=== PATIENT | male | born 1940 | race Caucasian/White ===

== ENCOUNTER 2022-11-23 08:42 | Outpatient (REF) | payer MEDICARE, MEDICAID, SELFPAY ==
[2022-11-23 11:09] LABS: MANUAL DIFF FLAG NO
[2022-11-23 11:37] LABS: Basophils Absolute Auto 0.1 X10*3/uL (0.0-0.2); Basophils Percent Auto 0.9 % (0-2); Eosinophils Absolute Auto 0.1 X10*3/uL (0.0-0.4); Eosinophils Percent Auto 1.4 % (0-4); Hematocrit 37.9 % (42.0-52.0); Hemoglobin 12.3 g/dl (14.0-18.0); Imm Gran Abs Auto 0.06 X10*3/uL (0.00-0.03); Imm Gran Pct Auto 0.9 % (0.0-0.4); Lymphocytes Absolute Auto 2.2 X10*3/uL (1.2-4.9); Lymphocytes Percent Auto 33.2 % (20-40); Mean Corpuscular HGB Conc 32.5 g/dl (31.0-36.0); Mean Corpuscular Hemoglobin 29.9 pg (27.0-33.0); Mean Corpuscular Volume 92.2 fL (80.0-98.0); Mean Platelet Volume 10.6 fL (9.4-12.4); Monocytes Absolute Auto 0.7 X10*3/uL (0.1-1.2); Monocytes Percent Auto 10.3 % (2-11); Neutrophils Absolute Auto 3.5 x10*3/uL (2.0-8.3); Neutrophils Percent Auto 53.3 % (45-73); Platelet Count 237 X10*3/uL (160-400); Red Blood Count 4.11 X10*6/uL (4.60-5.80); Red Cell Distribution Width 13.2 % (11.0-16.0); White Blood Count 6.5 X10*3/uL (4.8-10.8)
[2022-11-23 12:02] LABS: Alanine Aminotransferase 15 U/L (0-40); Albumin Level 4.2 g/dL (3.5-5.0); Alkaline Phosphatase 97 U/L (39-117); Anion Gap 10 (12-20); Aspartate Amino Transferase 20 U/L (5-37); Bilirubin Direct 0.2 mg/dL (0.0-0.5); Bilirubin Total 0.6 mg/dL (0.0-1.0); Blood Urea Nitrogen 22 mg/dL (9-16); Calcium 9.6 mg/dL (8.4-10.2); Carbon Dioxide 28 mmol/L (22-29); Chloride 104 mmol/L (96-108); Cholesterol 212 mg/dL; Estimated Glomerular Filt Rate 55; Glucose Random 149 mg/dL (60-115); HDL Cholesterol 55 mg/dL; LDL Cholesterol Calculated 139 mg/dl; Potassium 4.3 mmol/L (3.3-5.1); Sodium 138 mmol/L (135-145); Total Protein 7.9 g/dL (6.5-8.0); Triglycerides 93 mg/dL
[2022-11-23 12:11] LABS: ~HepC Num1 0.14 S/CO (0.00-0.79); ~Hepatitis C Antibody Nonreactive (Nonreactive)
[2022-11-23 12:13] LABS: Creatinine Urine 34.94 mg/dL; Microalbum/Creatinine Ratio Ur 228.9 ug/mg cr
[2022-11-23 12:14] LABS: HIV AB/AG Nonreactive (Nonreactive); HIV Num 1 0.05 S/CO (0.00-0.99)
[2022-11-25 10:59] LABS: Free Prostate Spec Ag 0.1 ng/mL; Percent Free Prostate Spec Ag 9 % (calc) (>25); Prostate Specific Ag Total 1.1 ng/mL (< OR = 4.0)
== END 2022-11-23 08:43 | disposition home or self-care (01) ==
LOC: HO.HHCL 08:42
PROVIDERS: Visit Provider Family Medicine
DX: Z11.4 Encounter for screening for human immunodeficiency virus [HIV] (principal); E11.9 Type 2 diabetes mellitus without complications; C61 Malignant neoplasm of prostate
CPT/HCPCS: 36415; 80048; 80061; 80076; 82043; 84154; 85025; 86803; 87389

== ENCOUNTER 2024-02-01 08:37 | Outpatient (REF) | payer OTHER, SELFPAY ==
[2024-02-01 11:05] LABS: MANUAL DIFF FLAG NO
[2024-02-01 11:19] LABS: Basophils Absolute Auto 0.1 X10*3/uL (0.0-0.2); Basophils Percent Auto 0.9 % (0-2); Eosinophils Absolute Auto 0.1 X10*3/uL (0.0-0.4); Hematocrit 36.4 % (42.0-52.0); Hemoglobin 11.9 g/dl (14.0-18.0); Imm Gran Abs Auto 0.03 X10*3/uL (0.00-0.03); Imm Gran Pct Auto 0.5 % (0.0-0.4); Lymphocytes Absolute Auto 1.8 X10*3/uL (1.2-4.9); Lymphocytes Percent Auto 30.6 % (20-40); Mean Corpuscular HGB Conc 32.7 g/dl (31.0-36.0); Mean Corpuscular Hemoglobin 29.5 pg (27.0-33.0); Mean Corpuscular Volume 90.1 fL (80.0-98.0); Mean Platelet Volume 10.8 fL (9.4-12.4); Monocytes Absolute Auto 0.7 X10*3/uL (0.1-1.2); Monocytes Percent Auto 11.5 % (2-11); Neutrophils Absolute Auto 3.3 x10*3/uL (2.0-8.3); Neutrophils Percent Auto 55.5 % (45-73); Platelet Count 237 X10*3/uL (160-400); Red Blood Count 4.04 X10*6/uL (4.60-5.80); Red Cell Distribution Width 13.8 % (11.0-16.0); White Blood Count 5.9 X10*3/uL (4.8-10.8)
[2024-02-01 11:22] LABS: Estimated Average Glucose 114 mg/dL; Hemoglobin A1C 113.5233 umol/L; Hemoglobin A1c % 5.6 % (<6.0); Total Hemoglobin (HGBA1C) 2991.5612 umol/L
[2024-02-01 11:30] LABS: Alanine Aminotransferase 72 U/L (0-40); Albumin Level 4.1 g/dL (3.5-5.0); Alkaline Phosphatase 112 U/L (39-117); Anion Gap 12 (12-20); Aspartate Amino Transferase 54 U/L (5-37); Bilirubin Direct 0.2 mg/dL (0.0-0.5); Bilirubin Total 0.6 mg/dL (0.0-1.0); Blood Urea Nitrogen 26 mg/dL (9-16); Calcium 9.6 mg/dL (8.4-10.2); Carbon Dioxide 25 mmol/L (22-29); Chloride 106 mmol/L (96-108); Cholesterol 196 mg/dL (<200); Estimated Glomerular Filt Rate > 60; Glucose Random 184 mg/dL (60-115); HDL Cholesterol 60 mg/dL (>40); Iron 99 mcg/dL (45-160); LDL Cholesterol Calculated 122 mg/dL (<100); Percent Iron Saturation 36 % (15-50); Potassium 4.3 mmol/L (3.3-5.1); Sodium 139 mmol/L (135-145); Total Iron Binding Capacity 276 mcg/dL (228-428); Total Protein 7.9 g/dL (6.5-8.0); Triglycerides 73 mg/dL (<150); Unsaturated Iron Binding 177 ug/dL
[2024-02-01 11:50] LABS: Ferritin 167 ng/mL (20-250); TSH reflex Free T4 2.88 uIU/mL (0.32-4.0)
[2024-02-01 11:53] LABS: Creatinine Urine 34.93 mg/dL; Microalbum/Creatinine Ratio Ur 403.6 ug/mg cr (<30)
[2024-02-01 11:57] LABS: Folate > 20.0 ng/mL (> or = 4.0); Vitamin B12 628 pg/mL (200-900)
== END 2024-02-01 08:38 | disposition home or self-care (01) ==
LOC: HO.HHCL 08:37
PROVIDERS: Visit Provider Family Medicine
DX: E11.9 Type 2 diabetes mellitus without complications (principal); D64.9 Anemia, unspecified
CPT/HCPCS: 36415; 80048; 80061; 80076; 82043; 82570; 82607; 82728; 82746; 83036; 83540; 84443; 85025

== ENCOUNTER 2024-08-16 10:16 | Outpatient (REF) | payer OTHER, SELFPAY ==
[2024-08-16 11:19] LABS: MANUAL DIFF FLAG NO
[2024-08-16 11:34] LABS: Basophils Absolute Auto 0.1 X10*3/uL (0.0-0.2); Basophils Percent Auto 0.8 % (0-2); Eosinophils Absolute Auto 0.1 X10*3/uL (0.0-0.4); Hematocrit 38.7 % (42.0-52.0); Hemoglobin 12.7 g/dl (14.0-18.0); Imm Gran Abs Auto 0.03 X10*3/uL (0.00-0.03); Imm Gran Pct Auto 0.5 % (0.0-0.4); Lymphocytes Absolute Auto 1.6 X10*3/uL (1.2-4.9); Lymphocytes Percent Auto 25.8 % (20-40); Mean Corpuscular HGB Conc 32.8 g/dl (31.0-36.0); Mean Corpuscular Hemoglobin 29.3 pg (27.0-33.0); Mean Corpuscular Volume 89.4 fL (80.0-98.0); Mean Platelet Volume 10.3 fL (9.4-12.4); Monocytes Absolute Auto 0.6 X10*3/uL (0.1-1.2); Monocytes Percent Auto 10.1 % (2-11); Neutrophils Absolute Auto 3.9 x10*3/uL (2.0-8.3); Neutrophils Percent Auto 61.8 % (45-73); Platelet Count 231 X10*3/uL (160-400); Red Blood Count 4.33 X10*6/uL (4.60-5.80); Red Cell Distribution Width 13.2 % (11.0-16.0); White Blood Count 6.3 X10*3/uL (4.8-10.8)
[2024-08-16 12:01] LABS: Alanine Aminotransferase 21 U/L (0-40); Albumin Level 4.1 g/dL (3.5-5.0); Alkaline Phosphatase 106 U/L (39-117); Aspartate Amino Transferase 30 U/L (5-37); Bilirubin Direct 0.3 mg/dL (0.0-0.5); Bilirubin Total 0.6 mg/dL (0.0-1.0); Ferritin 163 ng/mL (20-250); Iron 115 mcg/dL (45-160); Percent Iron Saturation 40 % (15-50); TSH reflex Free T4 2.27 uIU/mL (0.32-4.0); Total Iron Binding Capacity 288 mcg/dL (228-428); Total Protein 7.9 g/dL (6.5-8.0); Unsaturated Iron Binding 173 ug/dL
[2024-08-16 12:53] LABS: Folate 15.7 ng/mL (> or = 4.0); Vitamin B12 659 pg/mL (200-900)
== END 2024-08-16 10:17 | disposition home or self-care (01) ==
LOC: HO.HHCL 10:16
PROVIDERS: Visit Provider Family Medicine
DX: R74.01 Elevation of levels of liver transaminase levels (principal); D64.9 Anemia, unspecified
CPT/HCPCS: 36415; 80076; 82607; 82728; 82746; 83540; 84443; 85025

== ENCOUNTER 2024-10-12 13:38 | Outpatient (REF) | payer OTHER, SELFPAY ==
--- NOTE | ~2024-10-12 | US_ITS ---
EXAMINATION: Noninvasive assessment of the bilateral lower extremities with ARTERIAL DUPLEX, ANKLE BRACHIAL INDICES (ABIs), and PULSE VOLUME RECORDINGS (PVRs). CLINICAL INFORMATION: Pain and claudication. TECHNIQUE: Duplex Doppler techniques with waveform analysis and measurement of velocities in the bilateral common femoral, profunda femoris, superficial femoral, popliteal and tibial arteries were performed. Additionally, ankle pulse volume recordings, ankle pressure measurements and ankle brachial indices were obtained of the lower extremity arterial system bilaterally. The study was performed only at rest. COMPARISON: None FINDINGS: DIRECT DUPLEX DOPPLER FINDINGS: RIGHT LEG: Common femoral artery: 138 cm/s, phasicity: Triphasic. Profunda femoris artery: 93 cm/s, phasicity: Biphasic. Superficial femoral artery (proximal): 131 cm/s, phasicity: Triphasic. Superficial femoral artery (mid): 102 cm/s, phasicity: Triphasic. Superficial femoral artery (distal): 103 cm/s, phasicity: Triphasic. Popliteal artery: 88 cm/s, phasicity: Biphasic. Posterior tibial artery: 111 cm/s, phasicity: Biphasic. Peroneal artery: No color Doppler flow. Anterior tibial artery: 106 cm/s, phasicity: [There is Dorsalis pedis artery: 72 cm/s, phasicity:Biphasic. LEFT LEG: Common femoral artery: 111 cm/s, phasicity: Triphasic. Profunda femoris artery: 123 cm/s, phasicity: Triphasic Superficial femoral artery (proximal): 128 cm/s, phasicity: Triphasic. Superficial femoral artery (mid): 117 cm/s, phasicity: Triphasic. Superficial femoral artery (distal): 112 cm/s, phasicity: Triphasic. Popliteal artery: 125 cm/s, phasicity: Triphasic. Posterior tibial artery: 79 cm/s, phasicity: Biphasic. Peroneal artery: No color Doppler flow. Anterior tibial artery: 107 cm/s, phasicity: Biphasic. Dorsalis pedis artery: 55 cm/s, phasicity: Biphasic. 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 No color Doppler flow, right peroneal artery. Left leg: Mild to moderate inflow disease involving mostly the posterior and anterior tibialis arteries and dorsalis pedis artery. No color Doppler flow, left peroneal artery. GERALDO Reference: - >1.4 = calcified vessels - 0.9 - 1.4 = normal - no significant arterial disease - 0.7 - 0.89 = mild peripheral arterial disease - 0.51 - 0.69 = moderate peripheral arterial disease - d 0.50 = severe peripheral arterial disease - < .30 = critical arterial disease Electronically signed by: Calvin Clark MD 10/12/2024 03:35 PM EDT
== END 2024-10-12 13:39 | disposition home or self-care (01) ==
LOC: HO.US 13:38
PROVIDERS: PCP Family Medicine; Visit Provider Family Medicine
DX: I70.211 Atherosclerosis of native arteries of extremities with intermittent claudication, right leg (principal); I70.212 Atherosclerosis of native arteries of extremities with intermittent claudication, left leg; I83.90 Asymptomatic varicose veins of unspecified lower extremity
CPT/HCPCS: 93922; 93925

== ENCOUNTER → 2024-10-12 13:41 | Outpatient (BNV) | payer OTHER, SELFPAY | PROVIDERS: PCP Family Medicine; Visit Provider Radiology Diagnostic Radiology | DX: I70.213 Atherosclerosis of native arteries of extremities with intermittent claudication, bilateral legs (principal) | CPT/HCPCS: 93922; 93925 ==

== ENCOUNTER 2025-03-19 11:49 | Outpatient (REF) | payer MEDICARE, SELFPAY ==
[2025-03-19 13:59] LABS: Microalbum/Creatinine Ratio Ur 1695.0 ug/mg cr (<30)
[2025-03-19 16:28] LABS: Alanine Aminotransferase 27 U/L (0-40); Albumin Level 4.7 g/dL (3.5-5.0); Alkaline Phosphatase 99 U/L (39-117); Anion Gap 12 (12-20); Aspartate Amino Transferase 36 U/L (5-37); Blood Urea Nitrogen 27 mg/dL (9-16); Calcium 9.6 mg/dL (8.4-10.2); Carbon Dioxide 25 mmol/L (22-29); Chloride 104 mmol/L (96-108); Cholesterol 200 mg/dL (<200); Estimated Glomerular Filt Rate 58; HDL Cholesterol 59 mg/dL (>40); Potassium 4.3 mmol/L (3.3-5.1); Sodium 137 mmol/L (135-145); Total Protein 8.5 g/dL (6.5-8.0); Triglycerides 89 mg/dL (<150); Uric Acid 6.2 mg/dL (3.4-7.0)
[2025-03-22 00:43] LABS: TS Negative Control Passed; TS Panel A 6; TS Panel B 3; TS Positive Control Passed
[2025-03-22 07:44] LABS: Anti Nuclear Antibody Pattern Nuclear Envelope; Anti Nuclear Antibody Screen POSITIVE (NEGATIVE); Anti Nuclear Antibody Titer 1:320 titer
[2025-03-22 08:50] LABS: TSpotTB Borderline (Negative)
== END 2025-03-19 11:50 | disposition home or self-care (01) ==
LOC: HO.HHCL 11:49
PROVIDERS: PCP Family Medicine; Visit Provider Family Medicine
DX: Z11.1 Encounter for screening for respiratory tuberculosis (principal); Z01.84 Encounter for antibody response examination; E11.29 Type 2 diabetes mellitus with other diabetic kidney complication; M06.9 Rheumatoid arthritis, unspecified; R80.9 Proteinuria, unspecified; M10.9 Gout, unspecified
CPT/HCPCS: 36415; 80048; 80061; 80076; 82043; 82570; 84550; 85652; 86038; 86039; 86140; 86431; 86481